=== PATIENT | male | born 1990 | race Caucasian/White ===

== ENCOUNTER 2019-07-01 15:10 | Outpatient (CLI) | payer OTHER ==
[2019-07-01 16:00] LABS: BASOPHILS % 0.4 % (0.0-1.5); NEUTROPHILS # 4.3 # k/uL (1.4-7.7)
[2019-07-01 16:16] LABS: eGFR (Non-African) > 60
== END 2019-07-01 15:15 ==
LOC: LAB 15:10
PROVIDERS: ATTEND Family Medicine
DX: R07.1 Chest pain on breathing (principal)
CPT/HCPCS: 36415; 80053; 85025; 85651